=== PATIENT | male | born 1990 | race Caucasian/White ===

== ENCOUNTER 2018-12-11 02:31 | Emergency (ER) | payer BC ==
[~2018-12-11] VITALS: Ht 167.6 cm; Wt 63.5 kg
[2018-12-11 02:34] VITALS: BP 120/84
--- NOTE | 2018-12-11 02:34 | NUR ---
TO BED # 11 AMBULATORY
--- NOTE | 2018-12-11 02:47 | NUR ---
BIB SELF REPIORTS UPPER LEFT MOLAR PAIN X 1 WEEK. WORSE TODAY. STATES THE PAIN IS A 7/10 PRESSURE. HAS A DENTIST APPT SET UP FOR SUNDAY BUT THE PAIN IS TOO INTENSE TO WAIT THAT LONG. STATES HE HAS BEEN TAKING IBUPROFEN AND USING ORAJEL TO HELP WITH THE PAIN BUT IS NO LONGER WORKING. NO OTHER SYMPTOMS REPORTED. DENIES FEVER, NVD, SWELLING OR DISCHARGE.
--- NOTE | 2018-12-11 02:50 | NUR ---
Dr. Luevano at bedside.
[2018-12-11 03:07] VITALS: BP 120/84
--- NOTE | 2018-12-11 03:07 | NUR ---
DCPatient discharged with v/s stable. Written and verbal after care instructions given and explained. Patient alert, oriented and verbalized understanding of instructions. Ambulatory with steady gait. All questions addressed prior to discharge. ID band removed. Patient advised to follow up with dentist. Rx of PENICILLIN given. Patient offered pain medication by Dr. Luevano but he refuesed. Patient educated on indication of medication including possible reaction and side effects. Opportunity to ask questions provided and answered.
== END 2018-12-11 03:07 | disposition home or self-care (01) ==
LOC: MED 02:31
DX: K08.89 Other specified disorders of teeth and supporting structures (principal)
CPT/HCPCS: 99283

== ENCOUNTER 2019-01-26 20:20 | Emergency (ER) | payer BC, OTHER ==
[~2019-01-26] VITALS: Ht 167.6 cm; Wt 61.2 kg
[2019-01-26 20:28] VITALS: BP 135/87
--- NOTE | 2019-01-26 20:30 | NUR ---
pt bib self with c/o rt side dental pain, pt states he had previous infection to same side of mouth and was seen here in [place] 2- 3 months ago, was unable to follow up with dentist. pt took tylenol 1000 mg and ibuprofen 800mg today, but with no relief. pain 8/10 at the rt side of the jaw. denies any pmh, any alleries to meds. er md to see the pt.
[2019-01-26] MEDS ORDERED: AMOXICILLIN 500 MG CAP PO ONE (20:50)
[2019-01-26] MEDS ORDERED: IBUPROFEN 800 MG TAB PO ONE (20:50)
[2019-01-26 21:02] VITALS: BP 135/87
--- NOTE | 2019-01-26 21:02 | NUR ---
Patient discharged with v/s stable. Written and verbal after care instructions given and explained. Patient alert, oriented and verbalized understanding of instructions. Ambulatory with steady gait. All questions addressed prior to discharge. ID band removed. Patient advised to follow up with PMD. Rx of AMOXICILLIN AND IBUPROFEN given. Patient educated on indication of medication including possible reaction and side effects. Opportunity to ask questions provided and answered.
== END 2019-01-26 21:03 | disposition home or self-care (01) ==
LOC: MED 20:20
DX: K04.7 Periapical abscess without sinus (principal)
CPT/HCPCS: 99283

== ENCOUNTER 2019-07-10 18:34 | Emergency (ER) | payer OTHER ==
[~2019-07-10] VITALS: Ht 167.6 cm; Wt 64.4 kg
[2019-07-10 18:51] VITALS: BP 140/87
--- NOTE | 2019-07-10 18:55 | NUR ---
PATIENT AMBULATED TO BED 4.
--- NOTE | 2019-07-10 19:08 | NUR ---
C/O LT SIDE BOTTOM MOLAR PAIN X 3 DAYS. TOOTH IS BROKEN "A LONG TIME AGO". PT STATED AWAITING FOR DENTIST ON 07/08, TODAY PAIN INCREASES AND DEVELOPED FEVER. TOOK MOTRIN 800 MG AT 1200. DENIES PMH
--- NOTE | 2019-07-10 19:17 | NUR ---
NOTIFIED HANNAH ANDERSEN THAT PT TEMP IS 100.8, RECEIVED VERBAL ORDERS TO D/C TORADOL AND ORDER 1000 MG TYLENOL.
[2019-07-10] MEDS ORDERED: ACETAMINOPHEN EXTRA STRENGTH 500 MG TAB PO ONE (19:20)
[2019-07-10] MEDS ORDERED: KETOROLAC 60 MG/2 ML VIAL IM ONE (19:20)
--- NOTE | 2019-07-10 19:31 | NUR ---
PT LEFT BEFORE MEDICATION RE-EVALUATION. PT STATES HE HAS TAKEN MEDICATION BEFORE.
[2019-07-10 19:32] VITALS: BP 140/87
--- NOTE | 2019-07-10 19:32 | NUR ---
Patient discharged with v/s stable. Written and verbal after care instructions given and explained. Patient alert, oriented and verbalized understanding of instructions. Ambulatory with steady gait. All questions addressed prior to discharge. ID band removed. Patient advised to follow up with PMD. Rx of NORCO AND AMOXICILLIN given. Patient educated on indication of medication including possible reaction and side effects. Opportunity to ask questions provided and answered.
== END 2019-07-10 19:32 | disposition home or self-care (01) ==
LOC: MED 18:34
DX: K04.7 Periapical abscess without sinus (principal)
CPT/HCPCS: 99283

== ENCOUNTER 2021-07-22 04:07 | Emergency (ER) | payer OTHER ==
[~2021-07-22] VITALS: Ht 167.6 cm; Wt 68.0 kg
[2021-07-22 04:20] VITALS: BP 139/74
--- NOTE | 2021-07-22 04:23 | NUR ---
TO LOBBY A/W BED AMBULATORY
[2021-07-22] MEDS ORDERED: AMOXIL/CLAVULANATE 875/125 MG 1 TAB PO ONE (04:40)
[2021-07-22] MEDS ORDERED: IBUPROFEN 800 MG TAB PO ONE (04:40)
[2021-07-22] MEDS ORDERED: AMOX-1000 PO (04:41)
[2021-07-22] MEDS ORDERED: IBUP-2218 PO (04:41)
--- NOTE | 2021-07-22 04:50 | NUR ---
MEDICATED PER [facility] ORDER, TOLERATED WELL
--- NOTE | 2021-07-22 05:57 | NUR ---
Pt left w/out d/c paperwork
== END 2021-07-22 05:57 | disposition home or self-care (01) ==
LOC: MED 04:07
DX: S02.5XXA Fracture of tooth (traumatic), initial encounter for closed fracture (principal); K02.9 Dental caries, unspecified; Z79.899 Other long term (current) drug therapy; X58.XXXA Exposure to other specified factors, initial encounter; Y93.89 Activity, other specified; Y92.89 Other specified places as the place of occurrence of the external cause; Y99.8 Other external cause status
CPT/HCPCS: 99283